=== PATIENT | female | born 1975 | race Caucasian/White ===

== ENCOUNTER 2016-10-27 23:00 | Inpatient (IN) | payer MEDICAID ==
[~2016-10-27] VITALS: Ht 162.6 cm; Wt 96.0 kg
--- NOTE | ~2016-10-27 | ECH ---
Transthoracic Echocardiography Report (TTE) Demographics Patient Name TANIYA ANDERSON Date of Study 10/29/2016 Patient Number [id number] Visit Number [id number] Date of 1975 Room Number 419 Accession Number [id number] Gender Female Age 41 year(s) Referring Rao [place]real Air Dispatcher Norma Stone [facility] Physician Christy Campos MD Physician Vinny Chase MD Dry House Attendant Physician Sourav Supervising Ordering Physician Christy Campos MD, MD/MLP Nurse Stress Housekeeping Attendant Conclusions Contractility Score Summary Normal Left Ventricular contractility was noted. Summary Technically adequate exam. The estimated left ventricular ejection fraction is 60-65%. Mild concentric left ventricular hypertrophy. No significant valvular abnormalities. Recommendation The patient will be given the results of this study by the physician who ordered the exam. Procedure Type of Study TTE procedure:Echo Complete SF. Procedure Date Date: 10/29/2016 Start: 04:21 PM Technical Quality: Adequate visualization Additional Indications:bacteremia Appropriate Use Criteria: 9 Height: 64 inches Weight: 199 pounds BSA: 1.95 m Rhythm: Within normal limits HR: 44 bpm BP: 97/57 mmHg M-Mode/2D Measurements LV Diastolic Dimension: 5.45 cm LV Systolic Dimension: 3.69 cm LV Septum Diastolic: 1.19 cm LV PW Diastolic: 1.24 cm AO Root Dimension: 2.57 cm Cardiac Output: 2.59 l/min LA Dimension: 4.46 cm Cardiac Index: 1.33 l/min*m LA volume index: 30 ml/m LVOT: 1.9 cm RV Base: 3.7 cm LVOT VTI: 20.77 cm RV Mid: 2.8 cm LV Stroke volume: 58.86 ml RV Length: 6.9 cm LV Stroke volume index: 30.18 ml/m TDI-S': 11 cm/s Doppler Measurements AV Peak Velocity: 1.1 m/s MV Peak E-Wave: 0.94 m/s AV Peak Gradient: 4.84 mmHg MV Peak A-Wave: 0.58 m/s AV Mean Gradient: 2.89 mmHg MV E/A Ratio: 1.61 LVOT Peak Velocity: 0.81 m/s MV P1/2t: 41.4 msec AV Area (Continuity):2.75 cm MV Deceleration Time: 142.7 msec MV Area (PHT): 5.32 cm RA Area: 13.75 cm Findings Left Ventricle The left ventricle is normal in size . Mild concentric left ventricular hypertrophy. Diastolic assessment reveals normal relaxation. Right Ventricle Normal right ventricle structure and function. Left Atrium Normal left atrial size. Right Atrium Normal right atrial size. Mitral Valve Normal mitral valve structure and function. Mild mitral regurgitation by color Doppler. Aortic Valve Normal aortic valve structure and function. Tricuspid Valve Normal tricuspid valve structure and function. Trivial tricuspid regurgitation by color Doppler. Pulmonic Valve The pulmonic valve is not well visualized. Pericardial Effusion No evidence of pericardial effusion. Miscellaneous Visualized portions of the aortic root and ascending aorta appear normal in size. Pleural Effusion No evidence of pleural effusion. Contractility Score LV regional wall motion:(0-Non visualized 1-Normal 2-Hypokinesis 3-Akinesis 4-Dyskinesis 5-Aneurysm) Signature
[~2016-10-27 23:00] MED LIST: ALEVE220 M1 PO; BACTRIM DS DPS1 TAB PO; BENADRYL-DPS25 MG PO; DEPO-PROVE150 MG/11 IM; DIFLUCAN DPS150 MG PO; DURAGESIC DPS100 MCG TD; DURAGESIC DPS100 MCG TP; DURAGESIC50 MCG TD; ELOCON TP; INTRALIPID 20%500 ML IV; KENALOG 0.1% D454 GM TP; LEVAQUIN DPS500 MG PO; LYRICA75 MG PO; MAALOX DPS30 ML PO; MAG-OX400 MG PO; MELATONIN3 MG PO; MICRO-K DPS10 MEQ PO; MYCOSTATIN PWD15 GM TP; NYSTATIN CREAM15 GM TP; OXYCONTIN15 MG PO; PHENERGAN DPS25 MG PO; PROTONIX40 MG PO; ROXICODONE15 MG PO; SILVADENE20 GM TP; THERAPEUTIC MUL1 TAB PO; TPN IV; TYLENOL DPS325 MG PO; VANCOCIN-DPS1 GM IV; VITAMIN D350000 UNIT PO; XANAX DPS0.5 MG PO; XARELTO20 MG PO; ZOFRAN8 MG PO; ZOSYN 3.373.375 GM/5 IV; ZYVOX600 MG PO
--- NOTE | 2016-10-28 07:05 | ER ---
ADMIT: 10/28/2016 RM/LOC: 419 [facility] MR#: [id number] [address] [address] [place] [address] Emergency Room Report SEX: F AGE: 40 : 1975 DATE: 10/27/2016 CHIEF COMPLAINT: Fever. 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 The patient has been hospitalized nearly continuously either acute care or convalescent care since 2013. PAST MEDICAL HISTORY: ILLNESSES: E. coli, UTI, pulmonary emboli, MRSA line infections, protein-calorie malnutrition due to short-gut syndrome, anemia of chronic disease, enterocutaneous fistulas, abdominal mesh infections, chronically colonized with Pseudomonas, multiple blood transfusion, multiple iron transfusions, continuous TPN, morbid obesity, chronic pain syndrome, bipolar disorder, obstructive sleep apnea. OPERATIONS: Cholecystectomy, Gibson-en-Y bypass and takedown with multiple small bowel resections, attempted enterocutaneous fistulotomies and chronic ventral hernia with mesh infection. ALLERGIES: CODEINE, MORPHINE, MEROPENEM, COPPER, TAPE, ERYTHROMYCIN, METRONIDAZOLE. MEDICATIONS: Please see nurse's MAR. SOCIAL HISTORY: , disabled, nonsmoker, nondrinker, no illicit drugs. FAMILY HISTORY: Positive for heart disease, chronic kidney disease, obesity, and hypertension. REVIEW OF SYSTEMS: A 12-point review of systems negative for all other systems, illnesses, or operations except as outlined above. PHYSICAL EXAMINATION: VITAL SIGNS: Temp 100.9, pulse 101, respirations 18, BP 157/67, SaO2 of 98%. GENERAL: Chronically ill-appearing, obese female, in no acute distress. Non-diaphoretic without jaundice or icterus. HEENT: Normocephalic. No evidence of epistaxis, rhinorrhea, or otorrhea. NECK: Supple without lymphadenopathy or thyromegaly. CHEST: Clear. Breath sounds equal without rales, rhonchi, or wheeze. Right subclavian central lumen central line noted. HEART: Tachycardic, regular without murmur, gallop, or edema. ABDOMEN: Obese. Chronic wound infection with fistulas noted in the epigastric region. BACK: No CVA tenderness. NEURO: EOMI. PERRLA. No evidence of drift, dysarthria, or ataxia. Gait not ADMIT: 10/28/2016 RM/LOC: 419 [facility] MR#: [id number] [address] [place] [id number] TANIYA ANDERSON [address] [place] [address] Emergency Room Report SEX: F AGE: 40 : 1975 assessed. MENTAL STATUS: Alert, oriented, and cooperative without delusions, hallucinations, or abnormal thought content. MEDICAL DECISION MAKING: The patient's screen is positive for sepsis. Hemoglobin 11.0, lactic 2.4, CRP 0.68, glucose 113, BNP 311, INR 1.12, troponin less than 0.015. Chest x-ray, negative. UA pending. EKG shows sinus tach with nonspecific T-wave changes, not changed from March 10, 2016. The patient was given Zofran, Dilaudid, vancomycin, and Zosyn in emergency department. Notified Dr. Vieth of admission, who agreed and gave orders to nursing staff. DIAGNOSES: 1. Moderate sepsis syndrome related to chronic central line infections. 2. Chronic enterocutaneous fistulas with ventral wound mesh infection. 3. Morbid obesity. RECOMMENDATION: Admit inpatient telemetry for Dr. Yeh. ADMISSION AND DISCHARGE CONDITION: Fair. Patient is a full code. Irving Fisher MD/ anatoly JOB #: [id number] CC: Lalo Yeh MD, Attending Physician Lalo Yeh MD, Family Physician
--- NOTE | 2016-11-01 14:58 | CO ---
ADMIT: 10/28/2016 RM/LOC: 419 [facility] MR#: [id number] [address] [address] [place] [address] Consultation SEX: F AGE: 40 : 1975 DATE OF CONSULTATION: 10/28/2016 ATTENDING PHYSICIAN: Lalo Yeh CONSULTING PHYSICIAN: Lindsey Harrison MD REASON FOR CONSULT: Sepsis. Thank you, Dr. Yeh for the consult and involving me in this patient's care. HISTORY OF PRESENT ILLNESS: Ms. Ramon is a 40-year-old woman with history of multiple medical problems, well known to me from her prior admissions. She has history of failed Gibson-en-Y procedure in May 2014, which was complicated by abdominal wall fistula and multiple repairs. She has been on chronic TPN since May 2014. She has had multiple PICC line infections in the past. She also underwent abdominal fistula closure in [place] by Dr. Bone, which looks better today. She presented to the ER yesterday with chills and fevers and not feeling well. She was noted to be hypotensive as well. Her last PICC line was placed around May of 2016 per the patient. There is significant erythema at the entry site. Blood cultures are pending at this time. PAST MEDICAL HISTORY: 1. Morbid obesity. 2. Bipolar disorder. 3. Obstructive sleep apnea. 4. Chronic abdominal pain. 5. Gibson-en-Y bypass and takedown, wound dehiscence, multiple PICC line infections. PAST SURGICAL HISTORY: 1. Attempted fistula repair. 2. Gibson-en-Y bypass in May 2014. 3. Cholecystectomy. FAMILY HISTORY: Significant for heart disease in her mother. SOCIAL HISTORY: She lives at home with her children and . Denies any smoking, alcohol, or recreational drug use. ALLERGIES: 1. MEROPENEM. 2. MACROLIDE. 3. CODEINE. 4. METRONIDAZOLE. 5. ERYTHROMYCIN. CURRENT MEDICATIONS: Reviewed. REVIEW OF SYSTEMS: A 10-point review of systems negative except as mentioned ADMIT: 10/28/2016 RM/LOC: 419 [facility] MR#: [id number] [address] [address] MONICA, TANIYA CROOKS [address] [place] [address] Consultation SEX: F AGE: 40 : 1975 in HPI. PHYSICAL EXAMINATION: VITAL SIGNS: Current temp 99.5, heart rate 72, respirations 16, blood pressure 80/46, and 90% on room air. GENERAL: No acute distress. HEENT: Head is normocephalic and atraumatic. Extraocular movements intact. CHEST: Clear to auscultation bilaterally. No wheezes, rales, or rhonchi. LYMPH: No palpable anterior/posterior cervical or supraclavicular lymphadenopathy. ABDOMEN: Soft, nontender, and nondistended. Active bowel sounds. There is an abdominal open abdominal wound on the anterior abdomen which looks clean with red granulation tissue at the ulcer base. PSYCH: Normal affect. Memory intact. LABORATORY DATA: Data review. CBC today shows white count of 6.4, hemoglobin 9.8, platelets 133, and CMP shows creatinine of 0.7, low potassium 3.1, and albumin of 1.8. Blood cultures are pending. Urinalysis showed 13 wbc's, and 10 rbc's. ASSESSMENT AND PLAN: 1. Sepsis, likely secondary to PICC line infection. There is significant erythema around the insertion site. Recommend removing the PICC line and culturing the catheter tip. Continue with vancomycin and Zosyn for now. We will follow up on the blood culture results. 2. Urinary tract infection. Urine culture pending. 3. Chronic TPN use. 4. Morbid obesity. 5. Bipolar disorder. Thank you for the consult and I will continue to follow the patient. Lindsey Harrison MD/ anatoly JOB #: [id number] CC: Lalo Yeh, Attending Physician Lalo Yeh, Family Physician
[2016-11-03] MEDS ORDERED: ZOFRAN8 MG PO (18:10)
[2016-11-03] MEDS ORDERED: XANAX DPS0.5 MG PO (18:11)
[2016-11-03] MEDS ORDERED: PHENERGAN DPS25 MG PO (18:11)
[2016-11-03] MEDS ORDERED: VITAMIN D50000 UNIT PO (18:11)
[2016-11-03] MEDS ORDERED: FENTANYL1 EAC2 TD (18:12)
[2016-11-03] MEDS ORDERED: PROTONIX40 MG PO (18:12)
[2016-11-03] MEDS ORDERED: OXYCONTIN15 MG PO (18:12)
[2016-11-03] MEDS ORDERED: LYRICA75 MG PO (18:13)
[2016-11-03] MEDS ORDERED: TYLENOL DPS325 MG PO (18:13)
[2016-11-03] MEDS ORDERED: THERA1 EACH PO (18:13)
[2016-11-03] MEDS ORDERED: ALEVE220 MG PO (18:13)
[2016-11-03] MEDS ORDERED: MELATONIN5 M2 PO (18:13)
[2016-11-03] MEDS ORDERED: CUBICIN500 MG IV (18:14)
[2016-11-03] MEDS ORDERED: PROSTAPHLIN DPS2 GM IV (18:15)
[2016-11-03] MEDS ORDERED: LIPIDS 20% IV (18:16)
--- NOTE | 2016-11-08 13:58 | HP ---
ADMIT: 10/28/2016 RM/LOC: 419 [facility] MR#: [id number] 26[address] [facility] [address] [place], [place] [address] [place] [address] History and Physical SEX: F AGE: 41 : 1975 DATE OF SERVICE: 10/28/2016 CHIEF COMPLAINT: Fever and chills. CLINICAL HISTORY: The patient is a disabled, morbidly obese, chronically ill, 40-year-old white female, readmitted to [facility] after presenting to the emergency room late on the evening of 10/27/2016, complaining of fever, chills, and just not feeling well. The patient notes that she had been feeling well up until Friday afternoon when she started to run a low-grade fever. She spiked a fever to 102 at home and noted she felt much the same as she usually feels when she has had previous sepsis episodes. The patient has a very complex medical history, dating back to her bariatric surgery. The patient had surgery in May of 2014 at the [facility] in [place] by Dr. Yves Bone. The patient had complications following her bariatric surgery and has essentially been in and out of the hospital continuously for the last two and half years with recurring bouts of sepsis and complications related to small bowel perforations and previous intracutaneous fistula which is now closed. The patient has had a chronic abdominal wound that has been previously repaired with mesh and has had some chronic wound infection in her abdominal wound, but most of her episodes of recurrent sepsis have been due to line sepsis. The patient has chronic indwelling central line for TPN therapy. As a result of the complications from her bariatric surgery and numerous other surgeries subsequently, she has developed short bowel syndrome and has difficulty with malabsorption. She is followed by [facility] at [facility]. She does TPN nightly to try and stabilize her calorie intake. The patient was seen in the ER on Friday evening, where her temp was noted to be 100.9, she was tachycardic. She appeared chronically ill. Her white count was normal at 5500. Procalcitonin was normal at 0.05. However, lactic acid was elevated at 2.4. Given her history of recurrent sepsis and her presenting symptoms, it was felt best to admit for aggressive IV antibiotics because of the sepsis or bacteremia due to possibly an infected central line. It is noted that her UA in the ER showed negative nitrites, 2+ leukocyte esterase, 13 wbc per high- power field. Her chest x-ray in the ER was clear. It was felt the most likely source of infection was line sepsis. PAST MEDICAL HISTORY: RECENT HOSPITALIZATIONS: The patient was most recently hospitalized with sepsis in May of 2016. She has had so many hospitalizations over the last two years, she cannot possibly remember the dates of all of them. She has essentially been hospitalized for the most for the last two years with numerous admissions here at [facility] for sepsis as well as numerous admissions at [facility] in [place] as well as one to two hospitalizations at the [facility], where she is followed by the [facility]. She was hospitalized as noted in May of 2016 here, from 06/10/2016 through 06/20/2016. She had MSSA bacteremia and septicemia with line sepsis at that time. She also noted that she had been hospitalized in March of 2016 with sepsis and complications. She then transferred to the [facility]. She was in-hospitalized for extended period of time at [facility] and ultimately transferred to the [facility] in [place] on 03/31/2016. She also was hospitalized here at [facility] in February of 2016 ADMIT: 10/28/2016 RM/LOC: 419 [facility] MR#: [id number] [address] [address] TANIYA ANDERSON [address] [place] [address] History and Physical SEX: F AGE: 41 : 1975 with sepsis. Once again, multiple admissions here at [facility] as well as in [facility] in [place]. PAST SURGICAL HISTORY: Previous surgical procedures include the gastric bypass surgery in May of 2014. She subsequently had multiple surgeries to try and repair enterocutaneous fistulas. She has had at least four major abdominal surgeries since her bypass surgery. She has also had attempts to repair her abdominal wound, had previous wound dehiscence and chronic abdominal wound due to the enterocutaneous fistula. She has history of a mesh graft in her abdominal wound to try and help heal the fascial defect. She has also had multiple EGDs by Dr. Bone in [place] to evaluate her gastrojejunal anastomosis. The patient notes that she has ultimately had her gastric bypass taken down because of the ongoing problem she had. The patient is vague and unclear on her other hospitalization. She cannot, as noted, remember all the dates. She was continuously in hospital for the first 9 months following her surgery in May of 2014. CURRENT MEDICATIONS: Her current medications include the followin. Home TPN, she usually runs her TPN for 10-12 hours per night. 2. Vitamin D3 at 50,000 units on Friday, Friday, and Friday. 3. Zofran 8 mg one every 6 hours for nausea. 4. Xanax 0.5 mg at bedtime p.r.n. 5. Phenergan 25 mg one tablet every 6 hours p.r.n. nausea and vomiting. 6. Protonix 40 mg b.i.d. 7. Oxycodone 15 mg q.4 hours p.r.n. pain. 8. Fentanyl 150 mcg patch q.72 hours for chronic pain. 9. Lyrica 75 mg b.i.d. 10.Melatonin 10 mg at bedtime. 11.Multivitamin one daily. 12.Tylenol 650 mg two tablets every 6 hours. 13.Aleve 220 mg two tablets t.i.d. ALLERGIES: SHE IS ALLERGIC TO MORPHINE. SHE IS ALSO ALLERGIC TO MACROLIDE ANTIBIOTICS WELL ERYTHROMYCIN. SHE HAS ALSO HAD REACTIONS TO COPPER, CODEINE, HYDROCODONE, ERYTHROMYCIN, METRONIDAZOLE, MEROPENEM. SHE IS ALSO SENSITIVE TO TAPES AND ADHESIVES. SOCIAL HISTORY: The patient is . She is totally disabled. She has essentially been hospital confined for the last two and half years. She does not consume alcoholic beverages. No history of illicit drug use. She is a nonsmoker. The patient lives here in [place] with her and four children. FAMILY HISTORY: There is a strong family history of coronary artery disease and history of obesity in the family as well as hypertension and chronic kidney disease. REVIEW OF SYSTEMS: CONSTITUTIONAL: The patient notes that she is chronically ADMIT: 10/28/2016 RM/LOC: 419 [facility] MR#: [id number] [address] [address] TANIYA ANDERSON [address] [place] [address] History and Physical SEX: F AGE: 41 : 1975 fatigued, chronic tired. Has poor activity tolerance. Cannot walk for more than 10-15 feet before she feels exhausted and fatigued. Had been basically feeling normal up until Friday afternoon when she started to run a fever. Her condition quickly deteriorated and she came to the ER. She does complain of chronic nausea, chronic severe abdominal pain. She continues to utilize TPN for nutritional support. HEENT: No upper respiratory congestion. No vision changes. No nasal congestion. No sore throat. PULMONARY: No shortness of breath. No cough. The patient does get dyspneic with activity due to her marked deconditioning and morbid obesity. History of sleep apnea. Also has history of prior pulmonary embolus. CARDIAC: She denies chest pain or palpitations. The patient had PE shortly following her gastric bypass surgery in 2013, was on anticoagulant for the first year following her surgery. No longer on anticoagulation. GASTROINTESTINAL: Failed gastric bypass. History of enterocutaneous fistula. Multiple abdominal surgeries. Chronically infected abdominal wound. History of prior wound dehiscence. She has chronic persistent abdominal pain. She denies diarrhea or blood in her stools. GENITOURINARY: History of frequent UTIs in the past. No flank pain or dysuria at this time. MUSCULOSKELETAL: Chronic back pain. Generalized weakness. ENDOCRINE: No history of diabetes or thyroid problems. NEUROLOGIC: Chronic headaches, but no focal neurologic symptoms. PSYCHIATRIC: History of bipolar disorder, depression, and chronic anxiety, aggravated by her chronic pain. HEMATOLOGIC: The patient has history of anemia of chronic disease. Has chronic anemia due to her malnutrition and malabsorption. As noted, diagnosed with short-bowel syndrome. PHYSICAL EXAMINATION: At this time: VITAL SIGNS: Her temp on admission was 99.3, had been 100.9 in the ER; pulse of 111, respirations 20, blood pressure 118/68, O2 saturation 92%. Weight 193 pounds. GENERAL: The patient is a morbidly obese, chronically ill-appearing 41-year- old female. She is in no acute distress. She is somewhat diaphoretic and sweaty. She is alert and oriented x3. HEENT: Her pupils are equal and reactive. Sclerae nonicteric. Conjunctivae noninflamed. Extraocular movements intact. Nose and throat today are noninflamed. Mucous membranes are dry. Dentition is in poor repair. Her tongue is dry. No oral lesions. NECK: Supple. No nuchal rigidity. Thyroid not enlarged. No cervical lymphadenopathy. LUNGS: Noted to be clear anteriorly, diminished in the bases. HEART: Regular rhythm. Sinus tachycardia. No lifts, thrills, or heaves. No evidence of failure. BREASTS: Exam not performed. ABDOMEN: Quite obese. She has a wound in her mid abdomen, which has actually reduced dramatically in size since last seen. The wound has good, clean, ADMIT: 10/28/2016 RM/LOC: 419 [facility] MR#: [id number] 26[address] [facility] [address] [place] [phone] TANIYA ANDERSON [address] [place] [id number] History and Physical SEX: F AGE: 41 : 1975 granulation tissue base. Does not look infected at this time. There is a lot of marginal scarring around the wound from where it is de-epithelializing and healing in. Wound is now down to about 3-4 cm in size. As she has diffuse abdominal tenderness, I cannot appreciate any masses or organomegaly. She has no guarding or rigidity. No peritoneal signs. PELVIC: Not performed. EXTREMITIES: Noted to have no peripheral edema. No calf tenderness. No evidence for DVT. She moves all four extremities. She has marked generalized weakness. INTEGUMENT: She has a large abdominal wound, but this has much improved in appearance from when last seen. Does not look acutely infected. No abdominal wall cellulitis. She does have some chronic monilial intertriginous rash in her pannicular folds as well as in her groin. NEUROLOGIC: She has no focal deficit. She has generalized weakness. Balance is poor. Gait is unsteady. Cognitively, she is well figured. She has no bizarre ideation. No delusions. Her mood is somewhat flat. No neurocognitive deficits noted. ASSESSMENT AT THE TIME OF ADMISSION: 1. Recurrent sepsis, suspect line sepsis from an infected central line. 2. Status post bariatric surgery with multiple complications. 3. 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 4. Short gut syndrome. 5. Chronic abdominal wound, healing. 6. Chronic intractable abdominal pain. 7. Iatrogenic opioid dependence. 8. Bipolar disorder. 9. Obstructive sleep apnea. 10.Indwelling central line for TPN therapy. 11.Past history of pulmonary embolus. 12.History of recurrent urinary tract infections. ADMIT: 10/28/2016 RM/LOC: 419 [facility] MR#: [id number] 26[address] [facility] [address] [place] [phone] TANIYA ANDERSON [address] [place] [address] History and Physical SEX: F AGE: 41 : 1975 13.History of prior recurrent sepsis, multifactorial. PLAN: Plan is to admit the patient. She is admitted after being seen in the ER. Started on IV Zosyn and IV vancomycin. She was treated per the sepsis protocol. Blood cultures were obtained. Urine cultures were obtained. We will treat aggressively for what appears to be recurrent sepsis pending results of her blood cultures. We will ask Dr. Harrison to see her in consultation since she has been followed by Infectious Disease at her last several hospitalizations as well. Anticipate we will need to remove the central line, leave it out for 48-72 hours; then once we have negative blood cultures, re- place central line and resume her usual TPN therapy. Plan of care was discussed with the patient and she agrees with this plan of treatment. Lalo Yeh MD/ anatoly JOB #: [id number] CC: Lalo Yeh, Attending Physician Lalo Yeh, Family Physician
--- NOTE | 2016-11-30 13:07 | DS ---
ADMIT: 10/28/2016 RM/LOC: 419 [facility] MR#: [id number] [address] [address] TANIYA ANDERSON [address] [place] [address] General Discharge Summary SEX: F AGE: 40 : 1975 ADMISSION DATE: 10/28/2016 DISCHARGE DATE: 11/02/2016 ADMITTING DIAGNOSIS: As per history and physical. FINAL DIAGNOSES: 1. Line sepsis/bacteremia secondary to infected central venous line. 2. Sepsis due to methicillin-susceptible Staph aureus. 3. Short gut syndrome/postsurgical malabsorption. 4. Chronic protein-calorie malnutrition. 5. Iatrogenic opioid dependence. 6. Anemia of chronic disease. 7. Intertriginous candidiasis. 8. Chronic pain syndrome. 9. Chronic intractable abdominal pain. 10.Morbid obesity status post bariatric surgery. 11.Chronic anxiety disorder. 12.Obstructive sleep apnea. 13.Bipolar disorder. 14.Past history of pulmonary embolus. PROCEDURES: The patient had removal of her central line on 10/29/2016. CLINICAL HISTORY: Taniya is a very unfortunate disabled, morbidly obese, chronically ill, 40-year-old female, readmitted to [facility] after presenting to the emergency room late on the evening of 10/27/2016, complaining of fever and chills. The patient had been feeling well until earlier in the day on 10/27/2016, when she started running a fever. The patient has a history of recurrent sepsis. She has a chronic indwelling central line for TPN feedings at home because of her short gut syndrome. She has had a history of multiple recurring bouts of sepsis. She was evaluated in the ER where her white count was noted to be normal. Her procalcitonin was normal. Lactic acid though was elevated at 2.4. Given her fever and chills and history of recurring episodes of sepsis and the possibility of line sepsis, it was felt best to admit. She is admitted and started on aggressive IV antibiotic therapy. For further details of her clinical history as well as past medical history and pertinent findings on physical exam, please see dictated history and physical. Please also see Dr. Harrison's dictated Infectious Disease consultation. LABORATORY AND X-RAY SUMMARY FROM THIS ADMISSION: For complete labs, please see cumulative laboratory summary included in the chart. Brief synopsis of lab; her initial CBC showed a white count of 6400, hemoglobin was 9.8, and hematocrit 29.2. At discharge; white count was 6000, hemoglobin 9.1, hematocrit 27.6, and platelets were normal at 190,000. On admission, her protime was normal. INR was 1.12. PTT was normal. Urinalysis showed 2+ blood, negative nitrites, 2+ leukocyte esterase, and 13 wbc's per high-power field, and 10 rbc's. On admission, her sodium was 141, potassium was 3.1, BUN was 11, creatinine was 0.7, blood sugar 104. Her total protein was low at 5. ADMIT: 10/28/2016 RM/LOC: 419 [facility] MR#: [id number] [address] [address] TANIYA ANDERSON [address] [place] [address] General Discharge Summary SEX: F AGE: 40 : 1975 Albumin was low at 1.8. Chemistry studies were monitored serially. At discharge; sodium was 144, potassium 3.4, her BUN was 20, creatinine was 1.1. Magnesium level was 1.9. Lactic acid was elevated on admission at 2.4. The morning following admission, lactic acid was down to normal at 1.5. The patient was placed on IV vancomycin. Vancomycin levels were monitored and dosages adjusted by pharmacy. Blood cultures drawn on admission grew out Staph aureus. She had 2 positive blood cultures for methicillin-sensitive Staph aureus. Blood cultures obtained during the course of her hospitalization showed no growth after she had been started on IV antibiotics. Urine culture showed no growth. Her blood type was found to be O positive. Negative antibody screen. X-ray studies included a placement of a tunneled central line, this was done on 10/29/2016 prior to discharge. Chest x-ray done in the ER was normal. Echocardiogram done during this admission showed no evidence of endocarditis. Her EF was normal at 60% to 65%. She had mild left ventricular hypertrophy, no significant valvular abnormalities. Her EKG showed sinus tachycardia. HOSPITAL COURSE: The patient was admitted, started on aggressive IV antibiotic therapy with IV vancomycin and IV Zosyn. On admission, she was hydrated with IV fluids. Dr. Harrison had seen her in the past, and we asked her to see her in consultation because of her recurring sepsis. Her concern on admission was line sepsis. Dr. Harrison agreed and her central line was removed. Her chronic pain was controlled with a Dilaudid [employer]. Her chronic abdominal wound is actually almost completely healed and did not appear to be infected or the source of infection. Central PICC line was removed after Dr. Harrison saw her. He did culture positive for methicillin-sensitive Staph and it was felt that this was line sepsis. The patient progressively improved in how she felt over the several days of her hospital stay. Once we had negative blood cultures, a new central line was placed. Ultimately, the patient was dismissed to home on 11/02/2016. The patient was dismissed with planned followup with both Dr. Harrison and at our office. DISCHARGE MEDICATIONS: At discharge, she was dismissed on: 1. Potassium 20 mEq b.i.d. 2. Lyrica 75 mg b.i.d. 3. Melatonin 10 mg at bedtime. 4. Aleve 440 mg b.i.d. 5. Protonix 40 mg b.i.d. 6. Multivitamin 1 daily. 7. Vitamin D 50,000 units on Friday, Friday, and Friday. 8. Duragesic patch 150 mcg changed every 72 hours. 9. Daptomycin 550 mg IV once daily until 11/05/2016. She was also to be on oxacillin continuous IV infusion of 12 g daily from 11/06/2016 through 11/13/2016. 10.Tylenol 650 mg p.r.n. minor discomfort. 11.Xanax 0.5 mg every 6 hours p.r.n. anxiety. 12.Zofran 8 mg every 6 hours p.r.n. nausea and vomiting. ADMIT: 10/28/2016 RM/LOC: 419 [facility] MR#: [id number] [address] [address] MONICATANIYA VELASCO [address] [place] [address] General Discharge Summary SEX: F AGE: 40 : 1975 13.TPN per pharmacy recommendations at her usual dose for 12 hours nightly. She is going to continue to follow also with her specialty clinic at the [facility]. She is followed by a short gut syndrome clinic for her short-bowel syndrome and chronic malnutrition. If she has any recurrent fever or signs of recurrent infection, she is to let us know. Otherwise, follow up in our office in 5 to 7 days. Followup was also arranged with Dr. Harrison as well. CONDITION AT DISCHARGE: Stable and improved. PROGNOSIS: Long-term prognosis is poor in view of the complexity and recurrence of her multiple medical problems. Lalo Yeh MD/ anatoly JOB #: [id number] CC: Lalo Yeh MD, Attending Physician Lalo Yeh MD, Family Physician
[2016-12-19] MEDS ORDERED: HAIR, SKIN & N1 EACH PO (14:00)
[2016-12-19] MEDS ORDERED: MOTRIN-DPS800 MG PO (14:01)
[2016-12-19] MEDS ORDERED: KLOR-CON 1010 MEQ PO (14:02)
[2016-12-19] MEDS ORDERED: MARINOL5 MG PO (14:03)
[2016-12-19] MEDS ORDERED: XARELTO15 MG PO (14:05)
[2016-12-19] MEDS ORDERED: [UNRECOGNIZED DRUG - REMARK] (14:06)
[2016-12-19] MEDS ORDERED: MAALOX DPS30 ML PO (14:08)
[2016-12-19] MEDS ORDERED: BENADRYL-DPS25 MG PO (14:08)
[2016-12-19] MEDS ORDERED: MELATONIN3 MG PO (14:09)
[2016-12-19] MEDS ORDERED: TYLENOL DPS325 MG PO (14:09)
== END 2016-11-02 14:10 | disposition home or self-care (01) | DRG 314 ==
LOC: ER 23:00 → 4PCU 10-28 00:14
PROVIDERS: ADMIT Family Medicine
PROC: 3E0336Z Introduction of Nutritional Substance into Peripheral Vein, Percutaneous Approach (ICD-10-PCS; 2016-10-28)
PROC: 02PY33Z Removal of Infusion Device from Great Vessel, Percutaneous Approach (ICD-10-PCS; principal; 2016-10-29)
PROC: 0JPT0XZ Removal of Tunneled Vascular Access Device from Trunk Subcutaneous Tissue and Fascia, Open Approach (ICD-10-PCS; principal; 2016-10-29)
DX: T80.211A Bloodstream infection due to central venous catheter, initial encounter (principal); A41.01 Sepsis due to Methicillin susceptible Staphylococcus aureus; K91.2 Postsurgical malabsorption, not elsewhere classified; E46 Unspecified protein-calorie malnutrition; F11.20 Opioid dependence, uncomplicated; D63.8 Anemia in other chronic diseases classified elsewhere; B37.2 Candidiasis of skin and nail; T85.79XD Infection and inflammatory reaction due to other internal prosthetic devices, implants and grafts, subsequent encounter; G89.4 Chronic pain syndrome; E66.9 Obesity, unspecified; Z68.33 Body mass index [BMI] 33.0-33.9, adult; F41.9 Anxiety disorder, unspecified; G47.33 Obstructive sleep apnea (adult) (pediatric); F31.9 Bipolar disorder, unspecified; Z86.711 Personal history of pulmonary embolism; Z82.49 Family history of ischemic heart disease and other diseases of the circulatory system

== ENCOUNTER 2016-11-06 23:11 | Emergency (ER) | payer MEDICAID ==
[~2016-11-06 23:11] MED LIST changes: +ALEVE220 MG PO; +CUBICIN500 MG IV; +FENTANYL1 EAC2 TD; +LIPIDS 20% IV; +MELATONIN5 M2 PO; +PROSTAPHLIN DPS2 GM IV; +THERA1 EACH PO; +VITAMIN D50000 UNIT PO
--- NOTE | 2016-11-07 05:33 | ER ---
ADMIT: 11/06/2016 RM/LOC: ER [facility] MR#: [id number] [id number] [facility] [address] [place] [id number] [place] [address] Emergency Room Report SEX: F AGE: 41 : 1975 DATE: 11/06/2016 HISTORY OF PRESENT ILLNESS: The patient is a 41-year-old female with a past medical history of gastric bypass/short-gut syndrome and bipolar, who has had central line for TPN and medications. Recently, the patient took off the line and received a midline since Friday. The patient states since she had midline, she had pain during injection, pain is mostly on the insertion of the midline and it is on the right arm and is burning, moderate in severity, mostly the pain is induced by injection of oxacillin infusion. The patient is supposed to call for appointment for another central line, which the patient has not called yet. PHYSICAL EXAMINATION: The patient was in no obvious pain or distress. Head, neck, chest, abdomen, and pelvis were noncontributory. Right arm comparing with the left arm, there was no swelling, there was a midline placed on the right medial arm. The patient had normal peripheral pulses, line was flushed, and there were no swelling or induration. Bedside ultrasound showed that the line is inside the venous system. The patient is stable and line is not obstructed. The patient was advised to follow up with the primary doctor and also followup with the office for central line placement as soon as possible today this morning. The patient agreed with the plan, acknowledged she understood it, and was discharged to home. Orlando Yost MD/ anatoly JOB #: [id number] CC: Orlando Yost MD, Attending Physician Lalo Yeh MD, Family Physician
[2016-12-19] MEDS ORDERED: HAIR, SKIN & N1 EACH PO (14:00)
[2016-12-19] MEDS ORDERED: MOTRIN-DPS800 MG PO (14:01)
[2016-12-19] MEDS ORDERED: KLOR-CON 1010 MEQ PO (14:02)
[2016-12-19] MEDS ORDERED: MARINOL5 MG PO (14:03)
[2016-12-19] MEDS ORDERED: XARELTO15 MG PO (14:05)
[2016-12-19] MEDS ORDERED: [UNRECOGNIZED DRUG - REMARK] (14:06)
[2016-12-19] MEDS ORDERED: MAALOX DPS30 ML PO (14:08)
[2016-12-19] MEDS ORDERED: BENADRYL-DPS25 MG PO (14:08)
[2016-12-19] MEDS ORDERED: TYLENOL DPS325 MG PO (14:09)
[2016-12-19] MEDS ORDERED: MELATONIN3 MG PO (14:09)
== END 2016-11-07 00:18 | disposition home or self-care (01) ==
LOC: ER 23:11
DX: M79.641 Pain in right hand (principal); F31.9 Bipolar disorder, unspecified

== ENCOUNTER 2016-11-08 20:23 | Emergency (ER) | payer MEDICAID ==
--- NOTE | 2016-11-10 07:39 | ER ---
ADMIT: 11/08/2016 RM/LOC: ER [facility] MR#: [id number] [address] [facility] [address] [place], [place] [address] TANIYA ANDERSON [address] [place] [address] Emergency Room Report SEX: F AGE: 41 : 1975 DATE: 11/08/2016 HISTORY OF PRESENT ILLNESS: The patient is a 41-year-old female with past medical history of short bowel syndrome, and who has history of infected central line, and uses the central line for TPN therapy. At the moment, has midline on the right side and is waiting for the appointment for reinsertion of the central line. The patient states the midline is 1 cm coming out of the skin and it was stopped at 2230 hours. The patient denies any fever, chills, nausea, vomiting, headaches, abdominal pain, chest pain, shortness of breath, or any pain in the extremities. PHYSICAL EXAMINATION: Vitals are normal. Head and neck, chest, and abdomen are noncontributory. On the right arm, there is a midline place with part of it out of the skin, I did not feel any induration or infiltration area. Flushing the line was not successful, the line was discontinued. The patient was discharged to home with return precautions and advised to come back with appointment today for midline placement, and follow up for central line placement. The patient acknowledged that she understood the plan, got the information about midline appointment from the nursing. The patient was discharged home. Orlando Yost MD/ anatoly JOB #: [id number] CC: Orlando Yost MD, Attending Physician Lalo Yeh MD, Family Physician
[2016-12-19] MEDS ORDERED: HAIR, SKIN & N1 EACH PO (14:00)
[2016-12-19] MEDS ORDERED: MOTRIN-DPS800 MG PO (14:01)
[2016-12-19] MEDS ORDERED: KLOR-CON 1010 MEQ PO (14:02)
[2016-12-19] MEDS ORDERED: MARINOL5 MG PO (14:03)
[2016-12-19] MEDS ORDERED: XARELTO15 MG PO (14:05)
[2016-12-19] MEDS ORDERED: [UNRECOGNIZED DRUG - REMARK] (14:06)
[2016-12-19] MEDS ORDERED: BENADRYL-DPS25 MG PO (14:08)
[2016-12-19] MEDS ORDERED: MAALOX DPS30 ML PO (14:08)
[2016-12-19] MEDS ORDERED: MELATONIN3 MG PO (14:09)
[2016-12-19] MEDS ORDERED: TYLENOL DPS325 MG PO (14:09)
== END 2016-11-09 04:25 | disposition home or self-care (01) ==
LOC: ER 20:23
DX: T82.898A Other specified complication of vascular prosthetic devices, implants and grafts, initial encounter (principal); Z90.49 Acquired absence of other specified parts of digestive tract; Z88.1 Allergy status to other antibiotic agents; Z88.5 Allergy status to narcotic agent; Z88.8 Allergy status to other drugs, medicaments and biological substances

== ENCOUNTER → 2016-11-09 | Outpatient (CLI) | payer MEDICAID ==
[~2016-11-09] MED LIST changes: +HAIR, SKIN & N1 EACH PO; +KLOR-CON 1010 MEQ PO; +MARINOL5 MG PO; +MOTRIN-DPS800 MG PO; +XARELTO15 MG PO; +[UNRECOGNIZED DRUG - REMARK]
== END | disposition home or self-care (01) ==
LOC: THER.S 07:59
DX: T82.49XA Other complication of vascular dialysis catheter, initial encounter (principal)

== ENCOUNTER 2016-11-15 06:38 | Day surgery (SDC) | payer MEDICAID ==
[~2016-11-15] VITALS: Ht 162.6 cm; Wt 84.8 kg
[~2016-11-15 06:38] MED LIST changes: -HAIR, SKIN & N1 EACH PO; -KLOR-CON 1010 MEQ PO; -MARINOL5 MG PO; -MOTRIN-DPS800 MG PO; -XARELTO15 MG PO; -[UNRECOGNIZED DRUG - REMARK]
[2016-12-19] MEDS ORDERED: HAIR, SKIN & N1 EACH PO (14:00)
[2016-12-19] MEDS ORDERED: MOTRIN-DPS800 MG PO (14:01)
[2016-12-19] MEDS ORDERED: KLOR-CON 1010 MEQ PO (14:02)
[2016-12-19] MEDS ORDERED: MARINOL5 MG PO (14:03)
[2016-12-19] MEDS ORDERED: XARELTO15 MG PO (14:05)
[2016-12-19] MEDS ORDERED: [UNRECOGNIZED DRUG - REMARK] (14:06)
[2016-12-19] MEDS ORDERED: MAALOX DPS30 ML PO (14:08)
[2016-12-19] MEDS ORDERED: BENADRYL-DPS25 MG PO (14:08)
[2016-12-19] MEDS ORDERED: TYLENOL DPS325 MG PO (14:09)
[2016-12-19] MEDS ORDERED: MELATONIN3 MG PO (14:09)
== END 2016-11-15 10:10 | disposition home or self-care (01) ==
LOC: SSS 06:38
PROC: 0JH60XZ Insertion of Tunneled Vascular Access Device into Chest Subcutaneous Tissue and Fascia, Open Approach (ICD-10-PCS; principal; 2016-11-15)
DX: I82.C11 Acute embolism and thrombosis of right internal jugular vein (principal); Z79.899 Other long term (current) drug therapy; Z88.6 Allergy status to analgesic agent; Z88.8 Allergy status to other drugs, medicaments and biological substances; Z79.891 Long term (current) use of opiate analgesic

== ENCOUNTER 2016-12-11 16:19 | Inpatient (IN) | payer MEDICARE, MEDICAID ==
[~2016-12-11] VITALS: Ht 162.6 cm; Wt 88.6 kg
--- NOTE | 2016-12-12 10:56 | ER ---
ADMIT: 12/11/2016 RM/LOC: 530 [facility] MR#: [id number] 26[address] [facility] [address] [place] [phone] [place] [address] Emergency Room Report SEX: F AGE: 41 : 1975 DATE: 12/11/2016 CHIEF COMPLAINT: Left arm swelling. HISTORY OF PRESENT ILLNESS: The patient is a 41-year-old female, presents to the ER with complaints of left arm swelling that she noted since she woke up this morning. She does have numerous chronic medical conditions and she has a history of gastric bypass a few years ago with complications since that time, requiring repeat surgery and has short-gut syndrome now. She does also get IV fluid replacement and some electrolyte replacement in the central line and until recently had been getting TPN also. She does have a history of DVT in the past and has been off and on anticoagulants in the past. She is not currently taking any anticoagulation therapy. She denies any chest pain or shortness of breath. The patient denies any recent fevers or chills. No change in bowel or bladder function. Her primary complaint is left arm swelling and just generalized fatigue over the past 2 to 3 days. REVIEW OF SYSTEMS: Ten-point review of systems is done and otherwise negative except as in the HPI. PAST MEDICAL HISTORY: Short-gut syndrome, history of gastric bypass, history of MSSA bacteremia and septicemia with line infections in the past, DVT history, and morbid obesity. MEDICATIONS: See nurse's note. ALLERGIES: SEE NURSE'S NOTE. SOCIAL HISTORY: The patient denies smoking, drug, or alcohol use. PHYSICAL EXAMINATION: VITAL SIGNS: Blood pressure is 115/87, heart rate 69, respirations 16, sats 96%. The patient is afebrile. See T-sheet. EXTREMITIES: Focused exam of the left upper extremity reveals she does have edema to her left upper extremity when compared to the right. I am not able to palpate a cord. Sensation and motor are intact in the left upper extremity. LABORATORY DATA: White count of 4.0 and hemoglobin 10.2. Chemistries are normal. Ultrasound of left upper extremity shows occlusive thrombus from at least the left axillary vein to the proximal radial vein. Thrombus is also ADMIT: 12/11/2016 RM/LOC: 530 [facility] MR#: [id number] [address] [address] TANIYA ANDERSON [address] [place] [address] Emergency Room Report SEX: F AGE: 41 : 1975 noted in the proximal cephalic vein. The brachial vein could not be visualized and the left ulnar vein was not well visualized. Study is positive for DVT. EMERGENCY DEPARTMENT COURSE: Based on the patient's history of DVT and her isolated left arm swelling, I am concerned of DVT and get an ultrasound which does confirm DVT. Due to her complicated past medical history, plan at this time will be to admit the patient after I spoke with Dr. Mccall who is on for the patient's primary care physician, Dr. Yeh. Plan will be to start heparin therapy at this time. DIAGNOSIS: Deep venous thrombosis, left upper extremity. Joel Potts MD/ hectorl JOB #: [id number] CC: Lalo Yeh MD, Attending Physician Lalo Yeh MD, Family Physician
--- NOTE | 2016-12-12 12:51 | HP ---
ADMIT: 12/11/2016 RM/LOC: 530 [facility] MR#: [id number] [address] [facility] [address] [place], [place] [id number] TANIYA ANDERSON [address] [place] [address] History and Physical SEX: F AGE: 41 : 1975 DATE OF SERVICE: CHIEF COMPLAINT: Left arm swelling x1 day. HISTORY OF PRESENT ILLNESS: This is a 41-year-old female with extensive past medical history, including but not limited to, gastric bypass in 2013 with numerous complications and fistulas requiring multiple surgeries, multiple admissions for sepsis (most recently in October of 2016), history of MSSA bacteremia and septicemia, short gut syndrome requiring TPN, and history of multiple blood clots (not on chronic anticoagulation) admitted with left upper extremity venous thrombus. The patient states that she has felt fatigued the last few days and has been sleeping more than normal. She woke up around 11:00 a.m. today and noticed that her left arm was swollen. She thought it might have been because she had slept on it wrong, but the swelling did not improve after several hours and she knew that she had a history of blood clots, so she came to the ER. In the ER, an ultrasound revealed a left upper extremity thrombus. She has been on anticoagulation in the past, but because of her numerous hospitalizations and seeing multiple different doctors, that anticoagulation has been stopped and restarted and stopped again on several occasions so she is not currently taking anything. She denies any fevers, chest pain, shortness of breath, lower extremity swelling, dysuria, or cough. PAST MEDICAL HISTORY: 1. Multiple admissions both here at [facility], [facility] in [place] as well at [facility] for sepsis. Her most recent hospitalization here at [facility] for sepsis was in October of 2016. 2. Short-gut syndrome. She does follow at [facility] with the [facility] and is on TPN. 3. History of MSSA bacteremia and septicemia. 4. Morbid obesity. 5. 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 6. Multiple surgeries to repair abdominal wound from wound dehiscence. 7. History of a mesh graft to her abdomen. 8. Multiple EGDs. 9. History of blood clots. PAST SURGICAL HISTORY: 1. Again gastric bypass in May of 2014. 2. Multiple surgeries to repair the fistulas and chronic abdominal wound. 3. Central line placement. HOME MEDICATIONS: 1. Oxycodone 50 mg p.o. q.4. 2. Hair Skin and Nails 2500 mg daily. 3. Promethazine 25 mg, one tab, p.o., q.6 p.r.n. 4. Pantoprazole 40 mg one tab p.o. b.i.d. 5. Ibuprofen 800 mg, one tab p.o. q.8 p.r.n. 6. Alprazolam 0.5 mg one tab p.o. at night as needed. ADMIT: 12/11/2016 RM/LOC: [address] [facility] MR#: [id number] [facility] [address] [phone] TANIYA ANDERSON [address] [place] [address] History and Physical SEX: F AGE: 41 : 1975 7. Ondansetron 8 mg one tab p.o. q.6 p.r.n. 8. Lyrica 75 mg one cap p.o. b.i.d. 9. Klor-Con 10 mEq four tabs p.o. b.i.d. 10.Melatonin 10 mg p.o. 11.Home TPN, this is usually ran at night. ALLERGIES: SHE IS ALLERGIC TO MORPHINE, MACROLIDE ANTIBIOTICS, ERYTHROMYCIN. SHE ALSO HAS REACTIONS TO COPPER, CODEINE, HYDROCODONE, ERYTHROMYCIN, METRONIDAZOLE, AND MEROPENEM. SHE IS SENSITIVE TO HAY TAPES AND ADHESIVES. SOCIAL HISTORY: She is . Totally disabled. She does not consume alcohol beverages. No history of drug use. She is a nonsmoker. She lives here in town with her and four children. FAMILY HISTORY: There is a strong family history of coronary artery disease and history of obesity as well as hypertension and chronic kidney disease. REVIEW OF SYSTEMS: A 10-point review of systems was reviewed and negative other than that stated above in the HPI. PHYSICAL EXAMINATION: VITAL SIGNS: Blood pressure 140/74, pulse 73, respirations 14, temp 97.8, saturating 100% on room air. GENERAL: She is alert and oriented x3. No acute distress. HEART: Regular rate and rhythm. No murmur. She does have central line on the right. LUNGS: Clear to auscultation in all nugent. ABDOMEN: Soft, nontender, and nondistended. Positive bowel sounds. She does have a small open wound in the middle of her abdomen left from her multiple abdominal surgeries and repairs of wound dehiscence. EXTREMITIES: No edema in her lower extremities. She does have moderate left arm swelling, but no redness or tenderness. LABORATORY DATA: Sodium 145, potassium 3.9, creatinine 0.5. White count 4.0, hemoglobin 10.2, and platelets 196. Left upper extremity ultrasound was positive for venous thrombosis. ASSESSMENT AND PLAN: 1. Left upper extremity venous thrombosis. We will plan to start heparin ADMIT: 12/11/2016 RM/LOC: [address] [facility] MR#: [id number] [facility] [address] [phone] TANIYA ANDERSON [address] [place] [address] History and Physical SEX: F AGE: 41 : 1975 jj vish per PE protocol. She will need long-term anticoagulation, and we will likely start this in the next 48 hours. I would consider Hematology consult due to her history of multiple blood clots and no known clotting disorder. 2. Short-gut syndrome. She is on TPN. We will have Nutrition see her to help with the TPN schedule. 3. History of sepsis. 4. Status post bariatric surgery. 5. Chronic abdominal wounds. 6. Chronic pain. We will continue her home pain medications. 7. Leukopenia. 8. Anemia. We will plan to monitor these labs while she is here. Ella Abarca, Resident / Lalo Yeh MD / anatoly JOB #: [id number] CC: Lalo Yeh, Attending Physician Lalo Yeh, Family Physician
[2016-12-19] MEDS ORDERED: HAIR, SKIN & N1 EACH PO (14:00)
[2016-12-19] MEDS ORDERED: MOTRIN-DPS800 MG PO (14:01)
[2016-12-19] MEDS ORDERED: KLOR-CON 1010 MEQ PO (14:02)
[2016-12-19] MEDS ORDERED: MARINOL5 MG PO (14:03)
[2016-12-19] MEDS ORDERED: XARELTO15 MG PO (14:05)
[2016-12-19] MEDS ORDERED: [UNRECOGNIZED DRUG - REMARK] (14:06)
[2016-12-19] MEDS ORDERED: MAALOX DPS30 ML PO (14:08)
[2016-12-19] MEDS ORDERED: BENADRYL-DPS25 MG PO (14:08)
[2016-12-19] MEDS ORDERED: TYLENOL DPS325 MG PO (14:09)
[2016-12-19] MEDS ORDERED: MELATONIN3 MG PO (14:09)
--- NOTE | 2016-12-30 12:58 | DS ---
ADMIT: 12/11/2016 RM/LOC: [address] [facility] MR#: [id number] [address] [facility] [address] [place] [phone] [place] [address] Discharge Summary SEX: F AGE: 41 : 1975 ADMISSION DATE: 12/11/2016 DISCHARGE DATE: 12/18/2016 DISCHARGE DIAGNOSES: 1. Left upper extremity venous thrombosis status post intravascular clot lysis on 12/16/2016. 2. Left upper extremity pain. 3. Status post bariatric surgery. 4. Short gut syndrome. 5. Chronic pain syndrome. 6. Iatrogenic narcotic dependence. 7. Chronic abdominal wall ulcer. CONSULTATION: Interventional Radiology. HISTORY OF PRESENT ILLNESS: This is a 41-year-old female, who has an extensive past medical history who was admitted with a left upper extremity venous thrombosis. The patient states that she had felt fatigued in the last few days and had been sleeping more than normal. She woke up around 11:00 a.m. on the and noticed that her left arm was swollen. She thought it might have been because she had slept on it wrong, but the swelling did not improve after several hours and she knew that she had a history of blood clots so she came to the ER. In the ER, an ultrasound revealed a left upper extremity thrombosis. She had been on anticoagulation in the past but because of her numerous hospitalizations and multiple different physicians that she sees, the anticoagulation had been stopped. She denied any fever, chest pain, shortness of breath, lower extremity swelling, dysuria, or cough. HOSPITAL COURSE: On admission, she was started on a heparin drip. She was complaining of some nausea so she was given nausea medications. The following morning, a lactic acid was drawn that was noted to be elevated to 2.4. She was started on vanc and Zosyn and blood cultures were checked that ended up being negative. Nutrition also saw the patient while she was in the hospital due to her history of short gut syndrome and needing TPN. She was able to continue her home TPN dosages. The patient continued to have pain and swelling in the left upper extremity despite being on heparin so a repeat Doppler was ordered that showed extensive clot in the left axillary vein to the proximal radial vein. Interventional Radiology was then consulted to do a clot lysis, which was done on 12/16/2016. She continued to do well but continued to have pain in that left upper extremity so she was put on a Dilaudid STEAMER GUM CANDY. She did not have any more fevers, and her blood tests all remained normal so her IV antibiotics were deescalated. Pain was able to be controlled on the Dilaudid STEAMER GUM CANDY, so that was slowly weaned to oral pain medications, and she was started on Xarelto. She was also fitted for a compression sleeve and sent home on 12/18/2016. DISCHARGE MEDICATIONS: 1. Oxycodone 50 mg every 4 hours. 2. Hair, Skin and Nails vitamin daily. ADMIT: 12/11/2016 RM/LOC: [address] [facility] MR#: [id number] [address] [place] [id number] TANIYA ANDERSON [address] [place] [address] Discharge Summary SEX: F AGE: 41 : 1975 3. Promethazine 25 mg every 6 hours p.r.n. 4. Pantoprazole 40 mg b.i.d. 5. Ibuprofen 800 mg every 8 hours as needed. 6. Alprazolam 0.5 mg at bedtime as needed. 7. Ondansetron 8 mg every 6 hours as needed. 8. Lyrica 75 mg b.i.d. 9. Klor-Con 10 mEq 4 tabs b.i.d. 10.Melatonin 10 mg at bedtime as needed. 11.Dronabinol 5 mg every 6 hours as needed. 12.Fentanyl patch 100 mg every 72 hours. 13.Fentanyl patch 50 mg every 72 hours. 14.Xarelto 15 mg b.i.d. for 15 days then increase to 20 mg daily. 15.Home TPN as scheduled as before. 16.Benadryl 25 mg every 6 hours as needed. 17.Maalox 30 mL every 6 hours as needed. 18.Melatonin 9 mg at bedtime as needed. 19.Tylenol 650 mg every 4 hours as needed. DISCHARGE INSTRUCTIONS: She is to follow up with Dr. Yeh in 10-14 days. Ella Abarca DO Resident / Lalo Yeh MD / sarabjit JOB #: [id number] CC: Lalo Yeh MD, Attending Physician Lalo Yeh MD, Family Physician
== END 2016-12-18 17:00 | disposition home or self-care (01) | DRG 253 ==
LOC: ER 16:19 → 5MS 19:34 → 3ICU 12-16 12:06 → 6PED 12-17 15:40
PROVIDERS: ADMIT Family Medicine
DX: I82.622 Acute embolism and thrombosis of deep veins of left upper extremity (principal); K91.2 Postsurgical malabsorption, not elsewhere classified; F11.20 Opioid dependence, uncomplicated; D64.9 Anemia, unspecified; G89.4 Chronic pain syndrome; E66.9 Obesity, unspecified; Z68.32 Body mass index [BMI] 32.0-32.9, adult; L98.499 Non-pressure chronic ulcer of skin of other sites with unspecified severity; T81.89XD Other complications of procedures, not elsewhere classified, subsequent encounter; Z86.718 Personal history of other venous thrombosis and embolism; Z98.84 Bariatric surgery status; Z82.49 Family history of ischemic heart disease and other diseases of the circulatory system